=== PATIENT | female | born 1995 | race Caucasian/White ===

== ENCOUNTER 2018-11-30 19:27 | Emergency (ER) | payer BC ==
[2018-11-30] MEDS: SOD CHLORIDE 0.9% 1,000 ML IV (22:52)
[2018-11-30] MEDS: PROCHLORPERAZINE 10 MG INJ IV (22:53)
[2018-11-30] MEDS: DIPHENHYDRAMINE 50 MG INJ IV (22:53)
[2018-11-30] MEDS: KETOROLAC 30 MG INJ IV (22:53)
== END 2018-12-01 00:19 | disposition home or self-care (01) ==
LOC: FTE 12-01 00:19
DX: R51 Headache (principal)
CPT/HCPCS: 81025; 96374; 96375; 99284-25